=== PATIENT | male | born 1950 | race American Indian/Alaskan Native ===

== ENCOUNTER 2020-04-08 21:59 | Emergency (ER) | payer MEDICARE ==
[2020-04-08 22:56] VITALS: BP 145/84
--- NOTE | 2020-04-08 23:26 | XRay Report ---
Lumbar spine 3 views INDICATION: Low back pain. IMPRESSION: Multilevel discogenic and facet arthropathy particularly L4-L5 and L5-S1. This causes mil d neural foraminal narrowing at L5-S1 bilaterally. There is mild loss of vertebral body height anteri kirk involving the T12 vertebral body which may represent insufficiency fracture. Signer Name: Feliz Giordano MD Signed: 04/08/2020 11:22 PM Workstation Name: [id number]
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
== END 2020-04-08 23:59 | disposition home or self-care (01) ==
LOC: ED 21:59
DX: S39.012A Strain of muscle, fascia and tendon of lower back, initial encounter (principal); I10 Essential (primary) hypertension; V49.59XA Passenger injured in collision with other motor vehicles in traffic accident, initial encounter; Y93.89 Activity, other specified; Y92.89 Other specified places as the place of occurrence of the external cause; Y99.8 Other external cause status
CPT/HCPCS: 72100; 99283

== ENCOUNTER 2021-10-30 00:37 | Emergency (ER) | payer MEDICARE ==
--- NOTE | 2021-10-30 04:17 | XRay Report ---
BILATERAL HIP 3 VIEW(S) INDICATION / CLINICAL INFORMATION: fall; BILATERAL HIP PAIN FOLLOWED BY A FALL LAST NIGHT COMPARISON: Lumbar spine x-ray 04/08/2020 FINDINGS: BONES / JOINT(S): Pubic symphysis is widened measuring 3.2 cm. SI joints appear fairly symmetric. Pro ximal femurs demonstrate no evidence of injury. No significant arthritis. SOFT TISSUES: No significant abnormality. ADDITIONAL FINDINGS: None. IMPRESSION: 1. Interval diastases of the pubic symphysis without obvious disruption of the SI joints or asymmetry of the SI joints. Pelvic injury not excluded. No evidence of hip fracture. CT recommended for furthe r characterization of the SI joints and posterior osseous structure of the pelvic ring. Signer Name: Kaden Ross II, MD Signed: 10/30/2021 4:13 AM Workstation Name: [id number]
[2021-10-30] MEDS ORDERED: oxyCODONE /ACETAMINOPHEN 5-325MG TAB PO ONE (05:40)
--- NOTE | 2021-10-30 06:40 | Emergency Department Report ---
<LUIS OGFF - Last Filed: 10/30/21 06:37> ED General Adult HPI - General Chief complaint: Fall Stated complaint: FALL, BACK AND HIP PAIN Source: patient Mode of arrival: Ambulatory Limitations: No Limitations - History of Present Illness Initial comments: 71-year-old male was getting into his truck prior to arrival to the emergency department. Upon him standing up on the edge to get into the truck he lost his balance falling backwards unopposed landing on his buttocks and back in a twisted fashion on concrete resulting in significant amount of pain to the left hip and central pelvic area. He reports no loss of bowel bladder no saddle p aresthesia but pain is dull and throbbing worse with palpation and range of motion and ambulation and has been progressively worsening since the onset earlier today. Severity scale (0 -10): 10 Quality: dull Consistency: constant Improves with: none Worsens with: none Associated Symptoms: denies: cough, diaphoresis, loss of appetite, malaise, nausea/vomiting - Related Data Home Medications Medication Instructions Recorded Confirmed Last Taken atenoloL [Tenormin] 10 mg PO DAILY 07/14/13 07/14/13 Unknown Previous Rx's Medication Instructions Recorded Last Taken Type Ibuprofen [Motrin 800 MG tab] 800 mg PO Q8HR PRN #30 tablet 12/25/14 Unknown Rx Sulfamethoxazole/Trimethoprim 1 each PO BID #14 tablet 12/25/14 Unknown Rx [Bactrim DS TAB] traMADoL [Ultram 50 MG tab] 50 mg PO Q6HR PRN #15 tablet 12/25/14 Unknown Rx Ibuprofen [Motrin] 800 mg PO Q8HR PRN #30 tablet 04/08/20 Unknown Rx Metaxalone [Skelaxin] 800 mg PO TID #30 tablet 04/08/20 Unknown Rx Allergies Allergy/AdvReac Type Severity Reaction Status Date / Time No Known Allergies Allergy Verified 12/25/14 09:48 ED Review of Systems Comment: All other systems reviewed and negative ED Past Medical Hx - Past Medical History Hx Hypertension: Yes Hx Heart Attack/AMI: No Hx Congestive Heart Failure: No Hx Diabetes: No Hx Deep Vein Thrombosis: No Hx Pulmonary Embolism: No Hx Liver Disease: No Hx Renal Disease: No Hx Sickle Cell Disease: No Hx Arthritis: No Hx Seizures: No Hx Kidney Stones: No Hx Asthma: No Hx COPD: No Hx Tuberculosis: No Hx Dementia: No Hx HIV: No Additional medical history: Nerve issue in neck. / BONE SPURS. "BAD BACK" - Surgical History Hx Coronary Stent: No Hx Pacemaker: No Hx Internal Defibrillator: No Hx Appendectomy: Yes Additional Surgical History: Left shoulder replacement, foot surgery, scrotal cyst - Social History Smoking Status: Never Smoker Substance Use Type: None - Medications Home Medications: Home Medications Medication Instructions Recorded Confirmed Last Taken Type atenoloL [Tenormin] 10 mg PO DAILY 07/14/13 07/14/13 Unknown History Ibuprofen [Motrin 800 MG tab] 800 mg PO Q8HR PRN #30 tablet 12/25/14 Unknown Rx Sulfamethoxazole/Trimethoprim 1 each PO BID #14 tablet 12/25/14 Unknown Rx [Bactrim DS TAB] traMADoL [Ultram 50 MG tab] 50 mg PO Q6HR PRN #15 tablet 12/25/14 Unknown Rx Ibuprofen [Motrin] 800 mg PO Q8HR PRN #30 tablet 04/08/20 Unknown Rx Metaxalone [Skelaxin] 800 mg PO TID #30 tablet 04/08/20 Unknown Rx ED Physical Exam - General Limitations: No Limitations General appearance: alert, in no apparent distress - Head Head exam: Present: atraumatic, normocephalic - Eye Eye exam: Present: normal appearance - ENT ENT exam: Present: mucous membranes moist - Neck Neck exam: Present: normal inspection - Respiratory Respiratory exam: Present: normal lung sounds bilaterally. Absent: respiratory distress - Cardiovascular Cardiovascular Exam: Present: regular rate, normal rhythm. Absent: systolic murmur, diastolic murmur, rubs, gallop - GI/Abdominal GI/Abdominal exam: Present: soft, normal bowel sounds - Rectal Rectal exam: Present: deferred - Extremities Exam Extremities exam: Present: normal inspection, tenderness (States tenderness to the left hip region with palpation. No active bruising is present. Also tenderness along the area of the symphysis pubis and anterior region. With palpation and movement of left or right leg.) - Back Exam Back exam: Present: normal inspection - Neurological Exam Neurological exam: Present: alert, oriented X3 - Psychiatric Psychiatric exam: Present: normal affect, normal mood - Skin Skin exam: Present: warm, dry, intact, normal color. Absent: rash ED Disposition Clinical Impression: Fall, Pelvic hematoma, Pelvic fracture Disposition: 02 SHORT TERM HOSPITAL Condition: Serious Referrals: PRIMARY CARE, [Primary Care Provider] - 3-5 Days <SEROTALDO CRUM - Last Filed: 10/30/21 08:17> ED Review of Systems ROS: Stated complaint: FALL, BACK AND HIP PAIN Other details as noted in HPI ED Course Vital Signs 10/30/21 10/30/21 10/30/21 01:22 07:35 07:58 Temperature 98.9 F Pulse Rate 102 H 87 80 Respiratory 16 17 17 Rate Blood Pressure 122/85 Blood Pressure 145/81 144/78 [Left] O2 Sat by Pulse 91 99 99 Oximetry - Reevaluation(s) Reevaluation #1: 10/30/21 07:01 Patient is found to have evidence of pelvic open book fracture, with possible pelvic hematoma. He is brought to my attention emergently by the physician assistant buyer. He is awake, alert, oriented, moving 4 extremities, and of sound mind. He reports when he fell, he did not hit his head. He does not appear to be in any acute distress, and a physician assistant buyer has already applied a bed seat as a pelvic binder. We do not have orthopedics or trauma surgery on-call for this hospital/emergency room. Have advised transfer to a trauma center for services not available at this facility. In addition, I brought this patient to the attention of the charge nurse, Ms. Julia Sahu, and have advised that this patient needs to be moved to a monitored room, for close observation. We will reach out to [facility] transfer [place] to arrange transfer 10/30/21 07:39 Blood pressure currently 149/80 Pulse 76 bpm. Respirations 20/min. O2 sat 96% on room air. Temperature 98.3 degrees. I contacted [place] trauma surgeon, Dr. Bauer. We discussed the patient's history, physical, imaging studies and clinical impression. She accepts the patient as an ER to ER transfer. Requests emergent transportation to [facility]. I have personally reached out to [facility], critical care transport for [facility], and have requested emergent transport for this patient. I am waiting to hear back from them. Reevaluation #2: 10/30/21 07:40 Do not have trauma surgery or orthopedics available for call at this hospital/emergency room. Patient has an emergent condition at this time which cannot be definitively managed at this hospital, secondary to lack of the necessary subspecialty services. At the moment he is protecting his airway, hemodynamically stable, and ideal for transport for trauma services not available at this facility. Reevaluation #3: 10/30/21 07:40 Chest x-ray negative for acute findings. Patient specifically denies COVID symptoms, and also reports he has received his COVID-19 vaccination 10/30/21 07:53 [facility] to send transportation expediently ED Medical Decision Making - Lab Data Result diagrams: 10/30/21 07:02 10/30/21 07:02 Vital Signs 10/30/21 01:22 Temperature 98.9 F Pulse Rate 102 H Respiratory 16 Rate Blood Pressure 122/85 O2 Sat by Pulse 91 Oximetry Lab Results 10/30/21 10/30/21 10/30/21 Range/Units 07:02 07:02 07:02 WBC 7.3 (4.5-11.0) K/mm3 RBC 4.73 (3.65-5.03) M/mm3 Hgb 13.0 (11.8-15.2) gm/dl Hct 40.4 (35.5-45.6) % MCV 85 (84-94) fl MCH 28 (28-32) pg MCHC 32 (32-34) % RDW 14.3 (13.2-15.2) % Plt Count 216 (140-440) K/mm3 PT 13.7 (12.2-14.9) Sec. INR 0.95 (0.87-1.13) APTT 24.6 (24.2-36.6) Sec. Sodium 139 (137-145) mmol/L Potassium 3.9 (3.6-5.0) mmol/L Chloride 104.3 (98-107) mmol/L Carbon Dioxide 23 (22-30) mmol/L Anion Gap 16 mmol/L BUN 13 (9-20) mg/dL Creatinine 0.8 (0.8-1.3) mg/dL Estimated GFR > 60 ml/min BUN/Creatinine Ratio 16 % Glucose 143 H (75-100) mg/dL Calcium 9.4 (8.4-10.2) mg/dL Blood Type 10/30/21 Range/Units 07:02 WBC (4.5-11.0) K/mm3 RBC (3.65-5.03) M/mm3 Hgb (11.8-15.2) gm/dl Hct (35.5-45.6) % MCV (84-94) fl MCH (28-32) pg MCHC (32-34) % RDW (13.2-15.2) % Plt Count (140-440) K/mm3 PT (12.2-14.9) Sec. INR (0.87-1.13) APTT (24.2-36.6) Sec. Sodium (137-145) mmol/L Potassium (3.6-5.0) mmol/L Chloride (98-107) mmol/L Carbon Dioxide (22-30) mmol/L Anion Gap mmol/L BUN (9-20) mg/dL Creatinine (0.8-1.3) mg/dL Estimated GFR ml/min BUN/Creatinine Ratio % Glucose (75-100) mg/dL Calcium (8.4-10.2) mg/dL Blood Type A POSITIVE - Radiology Data Radiology results: pending, report reviewed, image reviewed BILATERAL HIP 3 VIEW(S) INDICATION / CLINICAL INFORMATION: fall; BILATERAL HIP PAIN FOLLOWED BY A FALL LAST NIGHT COMPARISON: Lumbar spine x-ray 04/08/2020 FINDINGS: BONES / JOINT(S): Pubic symphysis is widened measuring 3.2 cm. SI joints appear fairly symmetric. Proximal femurs demonstrate no evidence of injury. No significant arthritis. SOFT TISSUES: No significant abnormality. ADDITIONAL FINDINGS: None. IMPRESSION: 1. Interval diastases of the pubic symphysis without obvious disruption of the SI joints or asymmetry of the SI joints. Pelvic injury not excluded. No evidence of hip fracture. CT recommended for further characterization of the SI joints and posterior osseous structure of the pelvic ring. Signer Name: Kaden Ross II, MD Signed: 10/30/2021 3:13 AM Workstation Name: [id number] CT ABDOMEN AND PELVIS WITHOUT CONTRAST INDICATION / CLINICAL INFORMATION: pelvic pain post fall. TECHNIQUE: Axial CT images were obtained through the abdomen and pelvis without IV contrast. All CT scans at this location are performed using CT dose reduction for ALARA by means of automated exposure con trol. COMPARISON: Pelvis x-ray same date. FINDINGS: LOWER CHEST: No significant abnormality of the imaged chest. LIVER: No focal lesion. No acute findings. GALLBLADDER: No significant abnormality. BILE DUCTS: Not well visualized SPLEEN: No significant abnormality. PANCREAS: No significant abnormality. ADRENALS: No significant abnormality. KIDNEYS/URETERS: Bilateral renal cysts. No urolithiasis. No acute findings. STOMACH / DUODENUM / SMALL BOWEL: The stomach, duodenum, and small bowel demonstrate no significant abnormality. No specific abnormality of the mesentery demonstrated. COLON: No significant abnormality. APPENDIX: Not identified. PERITONEUM: No free air or free fluid are present within the abdomen or pelvis. LYMPH NODES: No significant adenopathy. AORTA / ARTERIES: No significant abnormality. IVC / VEINS: No significant abnormality. URINARY BLADDER: No significant abnormality. REPRODUCTIVE ORGANS: No significant abnormality. ADDITIONAL ABDOMINAL/PELVIC FINDINGS: None. SKELETAL SYSTEM: Widened appearance of the right SI joint demonstrated no avulsion fragments can be identified. Additionally, diastases of the pubic symphysis as demonstrated on comparison radiograph measures 2 cm. Moderate stranding in the region of the diastases compatible with hematoma is d emonstrated. Further evaluation for extravasation is not possible secondary to lack of intravenous contrast. Osseous structures of the lower chest, thoracic spine, lumbar spine, and pelvis otherwise are intact. IMPRESSION: 1. Acute pelvic diastases with widening of the pubic symphysis and asymmetric widening of the right greater the left SI joint. 2. Probable hematoma in the region of the pubic symphysis with stranding extending within the mons pubis and suggestion of scrotal edema. 3. Other nonacute findings as detailed. Signer Name: Kaden Ross II, MD Signed: 10/30/2021 5:39 AM Workstation Name: [id number] Critical Care Time: Yes Critical care time in (mins) excluding proc time.: 35 Critical care attestation.: If time is entered above; I have spent that time in minutes in the direct care of this critically ill patient, excluding procedure time. ED Disposition Is pt being admited?: No Does the pt Need Aspirin: No
--- NOTE | 2021-10-30 06:43 | Cat Scan Report ---
CT ABDOMEN AND PELVIS WITHOUT CONTRAST INDICATION / CLINICAL INFORMATION: pelvic pain post fall. TECHNIQUE: Axial CT images were obtained through the abdomen and pelvis without IV contrast. All CT scans at this location are performed using CT dose reduction for ALARA by means of automated exposure control. COMPARISON: Pelvis x-ray same date. FINDINGS: LOWER CHEST: No significant abnormality of the imaged chest. LIVER: No focal lesion. No acute findings. GALLBLADDER: No significant abnormality. BILE DUCTS: Not well visualized SPLEEN: No significant abnormality. PANCREAS: No significant abnormality. ADRENALS: No significant abnormality. KIDNEYS/URETERS: Bilateral renal cysts. No urolithiasis. No acute findings. STOMACH / DUODENUM / SMALL BOWEL: The stomach, duodenum, and small bowel demonstrate no significant a bnormality. No specific abnormality of the mesentery demonstrated. COLON: No significant abnormality. APPENDIX: Not identified. PERITONEUM: No free air or free fluid are present within the abdomen or pelvis. LYMPH NODES: No significant adenopathy. AORTA / ARTERIES: No significant abnormality. IVC / VEINS: No significant abnormality. URINARY BLADDER: No significant abnormality. REPRODUCTIVE ORGANS: No significant abnormality. ADDITIONAL ABDOMINAL/PELVIC FINDINGS: None. SKELETAL SYSTEM: Widened appearance of the right SI joint demonstrated no avulsion fragments can be i dentified. Additionally, diastases of the pubic symphysis as demonstrated on comparison radiograph me asures 2 cm. Moderate stranding in the region of the diastases compatible with hematoma is demonstrat ed. Further evaluation for extravasation is not possible secondary to lack of intravenous contrast. O sseous structures of the lower chest, thoracic spine, lumbar spine, and pelvis otherwise are intact. IMPRESSION: 1. Acute pelvic diastases with widening of the pubic symphysis and asymmetric widening of the right g reater the left SI joint. 2. Probable hematoma in the region of the pubic symphysis with stranding extending within the mons pu bis and suggestion of scrotal edema. 3. Other nonacute findings as detailed. Signer Name: Kaden Ross II, MD Signed: 10/30/2021 6:39 AM Workstation Name: [id number]
[2021-10-30] MEDS ORDERED: LACTATED RINGERS 1,000 ML IV ONE (06:57)
--- NOTE | 2021-10-30 07:40 | XRay Report ---
CHEST 1 VIEW INDICATION / CLINICAL INFORMATION: fall, hypoxoia. COMPARISON: Chest x-ray 07/14/2013 FINDINGS: SUPPORT DEVICES: None. HEART / MEDIASTINUM: No significant abnormality. LUNGS / PLEURA: No significant pulmonary abnormality. BONES: No significant osseous abnormality. ADDITIONAL FINDINGS: No significant additional findings. IMPRESSION: 1. No active cardiopulmonary disease. Signer Name: Kaden Ross II, MD Signed: 10/30/2021 7:35 AM Workstation Name: [id number]
[2021-10-30 07:46] LABS: Hematocrit 40.4 % (35.5-45.6); Mean Corpuscular HGB Conc 32 % (32-34); Mean Corpuscular Volume 85 fl (84-94); Platelet Count 216 K/mm3 (140-440); Red Blood Count 4.73 M/mm3 (3.65-5.03); Red Cell Distribution Width 14.3 % (13.2-15.2)
[2021-10-30 07:56] LABS: INR 0.95 (0.87-1.13)
[2021-10-30 07:57] LABS: Partial Thromboplastin Time 24.6 Sec. (24.2-36.6)
[2021-10-30 07:59] VITALS: BP 144/78
[2021-10-30 08:08] LABS: BUN/Creatinine Ratio 16; Blood Urea Nitrogen 13 mg/dL (9-20); Calcium 9.4 mg/dL (8.4-10.2); Hemolysis Index 5
[2021-10-30] MEDS ORDERED: ONDANSETRON 4 MG/2 ML INJ IV ONE (08:17)
[2021-10-30] MEDS ORDERED: MORPHINE 4 MG/1 ML INJ IV ONE (08:17)
== END 2021-10-30 09:10 | disposition short-term general hospital (02) ==
LOC: ED 00:37
DX: S32.9XXA Fracture of unspecified parts of lumbosacral spine and pelvis, initial encounter for closed fracture (principal); S30.0XXA Contusion of lower back and pelvis, initial encounter; I10 Essential (primary) hypertension; Z98.890 Other specified postprocedural states; W19.XXXA Unspecified fall, initial encounter; Y93.89 Activity, other specified; Y92.89 Other specified places as the place of occurrence of the external cause; Y99.8 Other external cause status
CPT/HCPCS: 36415; 71045; 73521; 74176; 80048; 85027; 85610; 85730; 86850; 86900; 86901; 96361; 96374; 96375; 99285; J2270; J2405; J7120; 96365